=== PATIENT | female | born 2000 | race Two or more races ===

== ENCOUNTER 2021-03-06 09:02 | Observation (INO) | payer SELFPAY ==
[2021-03-06] MEDS ORDERED: IV RINGERS,LACTATED 1000ML 1,000 ML IV SCH (09:30)
[2021-03-06 09:53] LABS: BILIRUBIN,URINE SMALL (NEG); COLOR,URINE AMBER; NITRITE,URINE POSITIVE (NEG); PH,URINE 6.5 (<5.0-8.0); PROTEIN,URINE 30 mg/dL (NEG-TRACE)
[2021-03-06 10:08] LABS: BACTERIA,URINE MANY /HPF (0-FEW); CLARITY,URINE HAZY
[2021-03-06 10:09] LABS: RBC,URINE OCC /HPF (0-2)
== END 2021-03-06 10:58 | disposition home or self-care (01) ==
LOC: 3 SO LND 09:02
PROVIDERS: ADMIT Obstetrics & Gynecology; ATTEND Obstetrics & Gynecology
DX: O99.891 Other specified diseases and conditions complicating pregnancy (principal); M54.9 Dorsalgia, unspecified; O26.892 Other specified pregnancy related conditions, second trimester; R30.9 Painful micturition, unspecified; Z3A.24 24 weeks gestation of pregnancy
CPT/HCPCS: 59025; 81001; 87086; G0378; G0379